=== PATIENT | male | born 1985 | race American Indian/Alaskan Native ===

== ENCOUNTER 2018-01-22 21:01 | Emergency (ER) | payer BC, OTHER ==
[2018-01-22] MEDS ORDERED: ASPIRIN PO ONE (21:22)
[2018-01-22] MEDS ORDERED: ASPIRIN ONE (21:23)
[2018-01-22 21:35] LABS: Basophils # (Auto) 0.1 K/mm3 (0.0-0.1); Basophils % (Auto) 0.9 % (0.0-1.8); Eosinophils # (Auto) 0.1 K/mm3 (0.0-0.4); Eosinophils % (Auto) 1.5 % (0.0-4.3); Hematocrit 47.6 % (35.5-45.6); Hemoglobin 16.2 gm/dl (11.8-15.2); Lymphocytes % (Auto) 33.6 % (13.4-35.0); Mean Corpuscular HGB Conc 34 % (32-34); Mean Corpuscular Hemoglobin 31 pg (28-32); Mean Corpuscular Volume 91 fl (84-94); Monocytes # (Auto) 0.8 K/mm3 (0.0-0.8); Monocytes % (Auto) 8.9 % (0.0-7.3); Platelet Count 247 K/mm3 (140-440); Red Blood Count 5.25 M/mm3 (3.65-5.03); Red Cell Distribution Width 13.8 % (13.2-15.2)
[2018-01-22 22:00] LABS: BUN/Creatinine Ratio 17; Blood Urea Nitrogen 15 mg/dL (9-20); Calcium 9.3 mg/dL (8.4-10.2); Hemolysis Index 25
--- NOTE | 2018-01-23 02:18 | Emergency Department Report ---
ED Chest Pain HPI - General Chief Complaint: Chest Pain Stated Complaint: CHEST PAIN Time Seen by Provider: 01/23/18 02:11 Source: patient Mode of arrival: Ambulatory Limitations: No Limitations - History of Present Illness Initial Comments: Patient is 32 years old male with no significant past medical history. Patient presented to the ER complaining of left-sided chest pain that started all of a sudden this evening. Patient described his chest pain as sharp and does not radiate. Patient denied any shortness of breath cough or congestion. Patient stated that he's been lifting heavy things one week ago. Patient does not have any other symptoms. MD Complaint: chest pain -: Sudden, This evening Onset: during rest Pain Location: left chest Pain Radiation: none Severity: moderate Severity scale (0 -10): 5 Quality: sharp Consistency: intermittent Improves With: remaining still Worsens With: movement - Related Data Previous Rx's Medication Instructions Recorded Last Taken Type Cyclobenzaprine [Flexeril] 10 mg PO TID PRN #15 tablet 05/20/16 Unknown Rx Ibuprofen [Motrin 800 MG tab] 800 mg PO Q8HR PRN #30 tablet 05/20/16 Unknown Rx Acetaminophen/Codeine [Tylenol #3] 1 tab PO Q6H PRN #20 tab 10/24/16 Unknown Rx Amoxicillin [Amoxicillin TAB] 875 mg PO BID #20 tablet 10/24/16 Unknown Rx Allergies Allergy/AdvReac Type Severity Reaction Status Date / Time No Known Allergies Allergy Unverified 05/20/16 19:16 Heart Score - HEART Score History: Slightly suspicious EKG: Non-specific Age: < 45 Risk factors: No known risk factors Troponin: < normal limit HEART Score: 1 - Critical Actions Critical Actions: 0-3 pts:0.9-1.7%risk of adverse cardiac event.Candidate for discharge ED Review of Systems ROS: Stated complaint: CHEST PAIN Other details as noted in HPI Comment: All other systems reviewed and negative Constitutional: denies: chills, fever Respiratory: denies: cough, orthopnea, shortness of breath, SOB with exertion, SOB at rest, wheezing Cardiovascular: chest pain. denies: palpitations, dyspnea on exertion, orthopnea Gastrointestinal: denies: abdominal pain, nausea, vomiting, diarrhea, constipation, hematemesis, melena, hematochezia Musculoskeletal: denies: back pain Skin: denies: rash, lesions, change in color, change in hair/nails Neurological: denies: headache, weakness, numbness, paresthesias, confusion, abnormal gait ED Past Medical Hx - Past Medical History Previous Medical History?: No - Surgical History Past Surgical History?: No - Social History Smoking Status: Light Tobacco Smoker Substance Use Type: Alcohol - Medications Home Medications: Home Medications Medication Instructions Recorded Confirmed Last Taken Type Cyclobenzaprine [Flexeril] 10 mg PO TID PRN #15 tablet 05/20/16 Unknown Rx Ibuprofen [Motrin 800 MG tab] 800 mg PO Q8HR PRN #30 tablet 05/20/16 Unknown Rx Acetaminophen/Codeine [Tylenol #3] 1 tab PO Q6H PRN #20 tab 10/24/16 Unknown Rx Amoxicillin [Amoxicillin TAB] 875 mg PO BID #20 tablet 10/24/16 Unknown Rx ED Physical Exam - General Limitations: No Limitations General appearance: alert, in no apparent distress - Head Head exam: Present: atraumatic, normocephalic, normal inspection - Eye Eye exam: Present: normal appearance - ENT ENT exam: Present: normal exam, normal orophraynx, mucous membranes moist - Neck Neck exam: Present: normal inspection, full ROM. Absent: tenderness, meningismus - Respiratory Respiratory exam: Present: normal lung sounds bilaterally, chest wall tenderness. Absent: respiratory distress, wheezes, rales, rhonchi, stridor, accessory muscle use, decreased breath sounds, prolonged expiratory - Cardiovascular Cardiovascular Exam: Present: regular rate, normal rhythm, normal heart sounds - GI/Abdominal GI/Abdominal exam: Present: soft, normal bowel sounds. Absent: distended, tenderness, guarding, rebound, rigid, organomegaly, mass, bruit, pulsatile mass , hernia - Extremities Exam Extremities exam: Present: normal inspection, full ROM, normal capillary refill - Back Exam Back exam: Present: normal inspection, full ROM. Absent: tenderness, CVA tenderness (R), CVA tenderness (L), muscle spasm, paraspinal tenderness, vertebral tenderness, rash noted - Neurological Exam Neurological exam: Present: alert, oriented X3, CN II-XII intact, normal gait - Skin Skin exam: Present: warm, intact, normal color. Absent: cyanosis ED Course Vital Signs 01/22/18 01/22/18 01/23/18 21:03 21:18 03:08 Temperature 98.3 F 98.3 F Pulse Rate 89 89 76 Respiratory 16 18 20 Rate Blood Pressure 135/81 135/81 O2 Sat by Pulse 99 99 Oximetry 01/23/18 01/23/18 01/23/18 03:15 03:30 03:45 Temperature Pulse Rate 73 75 79 Respiratory 18 19 18 Rate Blood Pressure 110/66 106/70 108/61 O2 Sat by Pulse Oximetry 01/23/18 04:00 Temperature Pulse Rate 76 Respiratory 22 Rate Blood Pressure 106/70 O2 Sat by Pulse Oximetry ED Medical Decision Making - Lab Data Result diagrams: 01/22/18 21:26 01/22/18 21:26 - EKG Data -: EKG Interpreted by Pa EKG shows normal: sinus rhythm Rate: normal - EKG Data Interpretation: no acute changes - Radiology Data Radiology results: report reviewed Referring Physician: ESEQUIEL WASHINGTON Patient Name: CARLOZ MCRAE Date of : 1985 Sex: Male Report Date: 2018-01-23 Report Status: Finalized Findings [address] [address] XRay Report Signed Patient: CARLOZ MCRAE MR#: [id number] : 1985 Acct:[id number] Age/Sex: 32 / M ADM Date: 01/22/18 Loc: ED Attending Dr: Ordering Physician: ESEQUIEL WASHINGTON Date of Service: 01/23/18 Procedure(s): XR chest 1V ap Accession Number(s): [id number] cc: ESEQUIEL WASHINGTON Fluoro Time In Minutes: FINAL REPORT PROCEDURE: XR CHEST 1V AP TECHNIQUE: Chest radiograph anteroposterior view. CPT 59146 HISTORY: chest pain COMPARISON: No prior studies are available for comparison. FINDINGS: Heart: Normal. Mediastinum/Vessels: Normal. Lungs/Pleural space: Normal. Bony thorax: No acute osseous abnormality. Life support devices: None. IMPRESSION: No acute cardiopulmonary abnormality. Transcribed By: [facility] Dictated By: BEAR JOSEPH MD Electronically Authenticated By: BEAR JOSEPH MD Signed Date/Time: 01/23/18235 DD/ 5 TD/TT: 01/23/18235 - Medical Decision Making Patient is sitting comfortably in no acute distress. Patient has been his atypical, 3 troponin is negative, d-dimer is negative and chest x-ray also is unremarkable. I advised patient to follow up with his primary care physician for further management. Critical care attestation.: If time is entered above; I have spent that time in minutes in the direct care of this critically ill patient, excluding procedure time. ED Disposition Clinical Impression: Chest pain, Costochondritis, acute Disposition: DC-01 TO HOME OR SELFCARE Is pt being admited?: No Condition: Stable Instructions: Chest Pain (ED), Costochondritis (ED) Referrals: JUDY TRENT MD [Primary Care Provider] - 3-5 Days
--- NOTE | 2018-01-23 02:41 | XRay Report ---
FINAL REPORT PROCEDURE: XR CHEST 1V AP TECHNIQUE: Chest radiograph anteroposterior view. CPT 19004 HISTORY: chest pain COMPARISON: No prior studies are available for comparison. FINDINGS: Heart: Normal. Mediastinum/Vessels: Normal. Lungs/Pleural space: Normal. Bony thorax: No acute osseous abnormality. Life support devices: None. IMPRESSION: No acute cardiopulmonary abnormality.
[2018-01-23 04:23] VITALS: BP 108/69
== END 2018-01-23 04:39 | disposition home or self-care (01) ==
LOC: ED 21:01
DX: M94.0 Chondrocostal junction syndrome [Tietze] (principal); F17.200 Nicotine dependence, unspecified, uncomplicated
CPT/HCPCS: 36415; 71045; 80048; 84484; 85025; 85379; 93005; 93010

== ENCOUNTER 2018-06-14 22:11 | Emergency (ER) | payer BC ==
[2018-06-15] MEDS ORDERED: NACL 0.9% 1000 ML 1,000 ML IV ONE (01:13)
[2018-06-15 01:43] LABS: Basophils # (Auto) 0.1 K/mm3 (0.0-0.1); Basophils % (Auto) 1.4 % (0.0-1.8); Eosinophils # (Auto) 0.2 K/mm3 (0.0-0.4); Eosinophils % (Auto) 2.4 % (0.0-4.3); Hematocrit 45.7 % (35.5-45.6); Hemoglobin 15.6 gm/dl (11.8-15.2); Lymphocytes # (Auto) 3.2 K/mm3 (1.2-5.4); Mean Corpuscular HGB Conc 34 % (32-34); Mean Corpuscular Hemoglobin 31 pg (28-32); Mean Corpuscular Volume 92 fl (84-94); Monocytes # (Auto) 0.7 K/mm3 (0.0-0.8); Monocytes % (Auto) 7.7 % (0.0-7.3); Platelet Count 246 K/mm3 (140-440); Red Blood Count 4.97 M/mm3 (3.65-5.03); Red Cell Distribution Width 13.3 % (13.2-15.2)
[2018-06-15 02:09] LABS: Alanine Aminotransferase 17 units/L (7-56); Albumin 4.5 g/dL (3.9-5); BUN/Creatinine Ratio 21; Blood Urea Nitrogen 19 mg/dL (9-20); Calcium 9.3 mg/dL (8.4-10.2); Hemolysis Index 33
[2018-06-15 02:52] LABS: Bilirubin,Urine NEG (Negative); Blood,Urine NEG (Negative); Color,Urine Yellow (Yellow); Mucus,Urine FEW /HPF; Protein,Urine <15 mg/dL mg/dL (Negative)
[2018-06-15] MEDS ORDERED: ALUM-MAG HYDROX-SIMETH 200-200-20MG/5ML PO ONE (04:43)
[2018-06-15] MEDS ORDERED: LIDOCAINE VISCOUS 2% PO ONE (04:43)
--- NOTE | 2018-06-15 07:15 | Emergency Department Report ---
ED Abdominal Pain HPI - General Chief Complaint: Abdominal Pain Stated Complaint: ABD PAIN Time Seen by Provider: 06/15/18 07:00 Source: patient Mode of arrival: Ambulatory Limitations: No Limitations - History of Present Illness Initial Comments: Patient is a 33-year-old male that presents emergency room for epigastric pain and periumbilical pain in his abdomen. Patient denies fever or chills. Patient states abdominal pain started 3 days ago and is a burning sensation. Patient states he has had lots of nausea without vomiting or diarrhea. Patient denies chest pain shortness of breath. Patient states the pain is a 5 out of 10. Patient denies past medical history. Patient denies alcohol and drug use. Patient states the pain is a burning and nonradiating. MD Complaint: abdominal pain -: Sudden Location: periumbilical, epigastric Radiation: none Migration to: no migration Severity: moderate Severity scale (0 -10): 5 Quality: burning Consistency: constant Improves With: rest Worsens With: eating Associated Symptoms: nausea. denies: vomiting, diarrhea, fever, chills, constipation, dysuria, hematemesis, hematochezia, melena, hematuria, anorexia, syncope - Related Data Previous Rx's Medication Instructions Recorded Last Taken Type Cyclobenzaprine [Flexeril] 10 mg PO TID PRN #15 tablet 05/20/16 Unknown Rx Ibuprofen [Motrin 800 MG tab] 800 mg PO Q8HR PRN #30 tablet 05/20/16 Unknown Rx Acetaminophen/Codeine [Tylenol #3] 1 tab PO Q6H PRN #20 tab 10/24/16 Unknown Rx Amoxicillin [Amoxicillin TAB] 875 mg PO BID #20 tablet 10/24/16 Unknown Rx Cyclobenzaprine [Flexeril] 5 mg PO TID PRN #20 tablet 01/23/18 Unknown Rx Naproxen [Naprosyn] 500 mg PO BID #14 tablet 01/23/18 Unknown Rx Esomeprazole Magnesium [Nexium] 40 mg PO DAILY #30 capsule. 06/15/18 Unknown Rx Sulfamethoxazole/Trimethoprim 1 each PO Q12H 10 Days #20 tablet 06/15/18 Unknown Rx [Bactrim Ds Tablet] Allergies Allergy/AdvReac Type Severity Reaction Status Date / Time No Known Allergies Allergy Unverified 05/20/16 19:16 ED Review of Systems ROS: Stated complaint: ABD PAIN Other details as noted in HPI Constitutional: denies: chills, fever Eyes: denies: eye pain, eye discharge, vision change ENT: denies: ear pain, throat pain Respiratory: denies: cough, shortness of breath, wheezing Cardiovascular: denies: chest pain, palpitations Endocrine: no symptoms reported Gastrointestinal: abdominal pain, nausea. denies: vomiting, diarrhea Genitourinary: denies: urgency, dysuria Musculoskeletal: denies: back pain, joint swelling, arthralgia Skin: denies: rash, lesions Neurological: denies: headache, weakness, paresthesias Psychiatric: denies: anxiety, depression Hematological/Lymphatic: denies: easy bleeding, easy bruising ED Past Medical Hx - Past Medical History Previous Medical History?: No - Surgical History Past Surgical History?: No - Family History Family history: no significant - Social History Smoking Status: Current Every Day Smoker Substance Use Type: None - Medications Home Medications: Home Medications Medication Instructions Recorded Confirmed Last Taken Type Cyclobenzaprine [Flexeril] 10 mg PO TID PRN #15 tablet 05/20/16 Unknown Rx Ibuprofen [Motrin 800 MG tab] 800 mg PO Q8HR PRN #30 tablet 05/20/16 Unknown Rx Acetaminophen/Codeine [Tylenol #3] 1 tab PO Q6H PRN #20 tab 10/24/16 Unknown Rx Amoxicillin [Amoxicillin TAB] 875 mg PO BID #20 tablet 10/24/16 Unknown Rx Cyclobenzaprine [Flexeril] 5 mg PO TID PRN #20 tablet 01/23/18 Unknown Rx Naproxen [Naprosyn] 500 mg PO BID #14 tablet 01/23/18 Unknown Rx Esomeprazole Magnesium [Nexium] 40 mg PO DAILY #30 capsule.dr 06/15/18 Unknown Rx Sulfamethoxazole/Trimethoprim 1 each PO Q12H 10 Days #20 tablet 06/15/18 Unknown Rx [Bactrim Ds Tablet] ED Physical Exam - General Limitations: No Limitations General appearance: alert, in no apparent distress - Head Head exam: Present: atraumatic, normocephalic - Eye Eye exam: Present: normal appearance - ENT ENT exam: Present: mucous membranes moist - Neck Neck exam: Present: normal inspection - Respiratory Respiratory exam: Present: normal lung sounds bilaterally. Absent: respiratory distress - Cardiovascular Cardiovascular Exam: Present: regular rate, normal rhythm. Absent: systolic murmur, diastolic murmur, rubs, gallop - GI/Abdominal GI/Abdominal exam: Present: soft, tenderness (epigastric ttp and periubilical ttp.), normal bowel sounds - Rectal Rectal exam: Present: deferred - Extremities Exam Extremities exam: Present: normal inspection - Back Exam Back exam: Present: normal inspection - Neurological Exam Neurological exam: Present: alert, oriented X3 - Psychiatric Psychiatric exam: Present: normal affect, normal mood - Skin Skin exam: Present: warm, dry, intact, normal color. Absent: rash ED Course Vital Signs 06/15/18 06/15/18 06/15/18 00:04 05:40 08:11 Temperature 98.2 F 98.6 F Pulse Rate 81 72 Respiratory 12 20 16 Rate Blood Pressure 105/65 Blood Pressure 105/63 [Right] O2 Sat by Pulse 98 98 97 Oximetry 06/15/18 12:11 Temperature 98.0 F Pulse Rate 84 Respiratory 16 Rate Blood Pressure Blood Pressure 112/72 [Right] O2 Sat by Pulse 99 Oximetry - Reevaluation(s) Reevaluation #1: Due to patient's exam and tenderness on evaluation, will order a CT scan of the abdomen with IV and oral contrast. Patient was already given a GI cocktail without relief. 06/15/18 07:15 Reevaluation #2: CT scan is negative. Findings consistent with gastritis. We will treat patient with an oral PPI and discharge home. All results discussed with patient. 06/15/18 11:16 ED Medical Decision Making - Lab Data Result diagrams: 06/15/18 01:24 06/15/18 01:24 - Radiology Data Radiology results: report reviewed EXAM: CT ABDOMEN PELVIS W CON HISTORY: abd pain COMPARISON: None. TECHNIQUE: Multiple contiguous axial images were obtained from the lung bases to the pubic symphysis after administration of IV contrast. Reformatted sagittal and coronal images were available for review. FINDINGS: Lung bases: Normal. Visualized heart and mediastinum: Normal. Liver: Normal. Spleen: Normal. Pancreas: Normal. Gallbladder and Biliary Tree: No calcified gallstones. No biliary ductal dilatation. Adrenal glands: Normal. Kidneys: Symmetric enhancement to both kidneys. 4 millimeter cortical low-density lesion in the cortex of the left kidney, too small to characterize but may represent a cyst. No hydronephrosis. Bladder: Normal. Pelvic organs: Normal. Bowel: No focal wall thickening. No evidence of obstruction. Oral contrast advances to the transverse colon. Normal appendix without surrounding inflammatory change. Peritoneum: No significant mesenteric adenopathy. No free air or free fluid. Vasculature: Abdominal aorta is normal in caliber without evidence of aneurysm. Normal appearance of the portal venous system and the inferior vena cava. Bones and soft tissues: No suspicious osseous lesions.No acute fracture or dislocation. The soft tissues are normal. IMPRESSION: No acute intra-abdominal pathology. No evidence of obstruction. Normal appendix. 4 millimeter low-density lesion in the cortex of the left kidney, too small to characterize, but may represent a cyst. - Medical Decision Making Patient is a 33-year-old male presented with epigastric and periumbilical abdominal pain. CT scan is negative. We'll discharge patient home with Nexium 1 tablet per day. Patient given ER precautions and DC instructions. Patient instructed to use a GERD diet and avoid NSAIDs. CBC and chemistry unremarkable. Urinalysis positive for leukocytes, we'll treat patient for a UTI and give him an antibiotic orally. - Differential Diagnosis gastritis. Gastroenteritis. Abdominal pain. GERD. Critical care attestation.: If time is entered above; I have spent that time in minutes in the direct care of this critically ill patient, excluding procedure time. ED Disposition Clinical Impression: Gastritis Qualifiers: Gastritis type: unspecified gastritis Chronicity: acute Gastritis bleeding: without bleeding Qualified Code(s): K29.00 - Acute gastritis without bleeding GERD (gastroesophageal reflux disease) Qualifiers: Esophagitis presence: without esophagitis Qualified Code(s): K21.9 - Gastro- esophageal reflux disease without esophagitis Abdominal pain Qualifiers: Abdominal location: epigastric Qualified Code(s): R10.13 - Epigastric pain UTI (urinary tract infection) Qualifiers: Urinary tract infection type: acute cystitis Hematuria presence: without hematuria Qualified Code(s): N30.00 - Acute cystitis without hematuria Disposition: DC-01 TO HOME OR SELFCARE Is pt being admited?: No Does the pt Need Aspirin: No Condition: Stable Instructions: Urinary Tract Infection in Men (ED), Diet for Ulcers and Gastritis (ED), Gastroesophageal Reflux Disease (ED) Additional Instructions: Patient is to follow-up with his primary care in 3-5 days. Patient to follow- up with city carrier in 2-3 days. Patient to avoid NSAID and Advil and Motrin and Aleve products. Patient increase water. Patient to eat a GERD diet. Patient to return to ER if condition worsens. Prescriptions: Esomeprazole Magnesium [Nexium] 40 mg PO DAILY #30 capsule. Sulfamethoxazole/Trimethoprim [Bactrim Ds Tablet] 1 each PO Q12H 10 Days #20 tablet Referrals: PRIMARY CARE, [Primary Care Provider] - 3-5 Days Forms: Work/School Release Form(ED) Time of Disposition: 11:20
--- NOTE | 2018-06-15 10:58 | Cat Scan Report ---
FINAL REPORT EXAM: CT ABDOMEN PELVIS W CON HISTORY: abd pain COMPARISON: None. TECHNIQUE: Multiple contiguous axial images were obtained from the lung bases to the pubic symphysis after administration of IV contrast. Reformatted sagittal and coronal images were available for review. FINDINGS: Lung bases: Normal. Visualized heart and mediastinum: Normal. Liver: Normal. Spleen: Normal. Pancreas: Normal. Gallbladder and Biliary Tree: No calcified gallstones. No biliary ductal dilatation. Adrenal glands: Normal. Kidneys: Symmetric enhancement to both kidneys. 4 millimeter cortical low-density lesion in the cortex of the left kidney, too small to characterize but may represent a cyst. No hydronephrosis. Bladder: Normal. Pelvic organs: Normal. Bowel: No focal wall thickening. No evidence of obstruction. Oral contrast advances to the transverse colon. Normal appendix without surrounding inflammatory change. Peritoneum: No significant mesenteric adenopathy. No free air or free fluid. Vasculature: Abdominal aorta is normal in caliber without evidence of aneurysm. Normal appearance of the portal venous system and the inferior vena cava. Bones and soft tissues: No suspicious osseous lesions.No acute fracture or dislocation. The soft tissues are normal. IMPRESSION: No acute intra-abdominal pathology. No evidence of obstruction. Normal appendix. 4 millimeter low-density lesion in the cortex of the left kidney, too small to characterize, but may represent a cyst.
[2018-06-15 12:19] VITALS: BP 112/72
== END 2018-06-15 12:11 | disposition home or self-care (01) ==
LOC: ED 22:11
DX: K29.00 Acute gastritis without bleeding (principal); N39.0 Urinary tract infection, site not specified; F17.200 Nicotine dependence, unspecified, uncomplicated
CPT/HCPCS: 36415; 74177; 80053; 81001; 85025; 99284; Q9967

== ENCOUNTER 2020-09-12 08:22 | Emergency (ER) | payer BC ==
[2020-09-12 08:29] VITALS: BP 126/80
--- NOTE | 2020-09-12 10:26 | Emergency Department Report ---
ED Rash HPI - HPI Chief Complaint: Neck Pain/Injury Stated Complaint: RASH Duration: 1 Location: Neck Suspected Cause: Unknown Rash Symptoms: Yes Blistering, No Itching, No Facial Swelling, No Tongue/Oral Swelling, No Breathing Difficulties, No Choking Sensation, No Wheezing/Dyspnea, No Peeling, No Fever, No Lightheaded, No Malaise, No Myalgias Severity: moderate Other History: The patient was evaluated in the emergency department for symptoms described in the history of present illness. He/she was evaluated in the context of the global COVID-19 pandemic, which necessitated consideration that the patient might be at risk for infection with the virus that causes COVID-19. Institutional protocols and algorithms that pertain to the evaluation of patients at risk for COVID-19 are in a state of rapid change based on information released by regulatory bodies including the CDC and federal and state organizations. These policies and algorithms were followed during the patient's care in the emergency department. Please note that these policies, procedures and recommendations changed on a rapid basis. 35-year-old - Spanish male presents to the emergency room for 1 week history of a rash to his left side of his neck and neck pain. Patient denies any change of detergents cologne or lotions. He denies any insect bite or sitting outside. He denies any fever chills no nausea no vomiting. He states that is just painful. He has tried [id number] hydrocortisone and Benadryl with no success. Patient denies any past medical history does not take any medications on a daily basis and has no known drug allergies. ED Review of Systems ROS: Stated complaint: RASH Other details as noted in HPI Comment: All other systems reviewed and negative ED Past Medical Hx - Past Medical History Previous Medical History?: No - Surgical History Past Surgical History?: No - Social History Smoking Status: Never Smoker - Medications Home Medications: Home Medications Medication Instructions Recorded Confirmed Last Taken Type Cyclobenzaprine [Flexeril] 10 mg PO TID PRN #15 tablet 05/20/16 Unknown Rx Acetaminophen/Codeine [Tylenol #3] 1 tab PO Q6H PRN #20 tab 10/24/16 Unknown Rx Amoxicillin [Amoxicillin TAB] 875 mg PO BID #20 tablet 10/24/16 Unknown Rx Cyclobenzaprine [Flexeril] 5 mg PO TID PRN #20 tablet 01/23/18 Unknown Rx Naproxen [Naprosyn] 500 mg PO BID #14 tablet 01/23/18 Unknown Rx Esomeprazole Magnesium [Nexium] 40 mg PO DAILY #30 capsule. 06/15/18 Unknown Rx Sulfamethoxazole/Trimethoprim 1 each PO Q12H 10 Days #20 tablet 06/15/18 Unknown Rx [Bactrim Ds Tablet] Acyclovir [Zovirax Tab] 400 mg PO Q8H 5 Days #40 tab 09/12/20 Unknown Rx Ibuprofen [Motrin 800 MG tab] 800 mg PO Q8HR PRN #30 tablet 09/12/20 Unknown Rx traMADoL [Ultram 50 MG tab] 50 mg PO Q6HR PRN #12 tablet 09/12/20 Unknown Rx Rash Exam - Exam General: Vital signs noted. No distress. Alert and acting appropriately. HEENT: No Periorbital Edema, No Conjuctival Injection, No Chemosis, No Perioral Edema, No Tongue Edema, No Uvular Edema, No Compromised Airway, No Drooling Lungs: Yes Good Air Exchange (Normal Breath Sounds), No Wheezes, No Ronchi, No Stridor, No Cough, No Labored Respirations, No Retractions, No Use of Accessory Muscles, No Other Abnormal Lung Sounds Heart: Yes Regular, No Murmur Skin: Yes Tenderness, Yes Erythema ED Course Vital Signs 09/12/20 08:26 Temperature 98.3 F Pulse Rate 91 H Respiratory 18 Rate Blood Pressure 126/80 O2 Sat by Pulse 96 Oximetry ED Medical Decision Making - Medical Decision Making 35-year-old -Spanish male presents to the emergency room for 1 week history of a rash to his left side of his neck and neck pain. Patient denies any change of detergents cologne or lotions. He denies any insect bite or sitting outside. He denies any fever chills no nausea no vomiting. He states that is just painful. He has tried [id number] hydrocortisone and Benadryl with no success. Patient denies any past medical history does not take any medications on a daily basis and has no known drug allergies. Rash appears to be vesicular in nature does does follow the dermal and does not cross the midline. Tenderness erythematous and vesicular. No drainage. Patient will be treated for shingles with acyclovir 400 mg 3 times a day for 5 days tramadol and ibuprofen for pain management referral to Dr. Mili Moya. Instructed patient do not operate heavy machinery while taking tramadol. Critical care attestation.: If time is entered above; I have spent that time in minutes in the direct care of this critically ill patient, excluding procedure time. ED Disposition Clinical Impression: Shingles Qualifiers: Herpes zoster complications: without complications Qualified Code(s): B02.9 - Zoster without complications Disposition: TO HOME OR SELFCARE Is pt being admited?: No Does the pt Need Aspirin: No Condition: Stable Instructions: Shingles, [id number] Additional Instructions: Please complete antiviral medication pain medication as needed follow-up with a primary care provider. Prescriptions: Ibuprofen [Motrin 800 MG tab] 800 mg PO Q8HR PRN #30 tablet PRN Reason: Pain traMADoL [Ultram 50 MG tab] 50 mg PO Q6HR PRN #12 tablet PRN Reason: Pain Acyclovir [Zovirax Tab] 400 mg PO Q8H 5 Days #40 tab Referrals: MAX AGUILERA MD [Primary Care Provider] - 3-5 Days CYNTHIA VILLA MD [Staff Physician] - 3-5 Days Forms: Work/School Release Form(ED)
== END 2020-09-12 10:31 | disposition home or self-care (01) ==
LOC: ED 08:22
DX: B02.9 Zoster without complications (principal); Z79.1 Long term (current) use of non-steroidal anti-inflammatories (NSAID); Z79.2 Long term (current) use of antibiotics; Z79.899 Other long term (current) drug therapy
CPT/HCPCS: 99282

== ENCOUNTER 2022-01-09 20:52 | Emergency (ER) | payer BC ==
[2022-01-09 21:31] VITALS: BP 139/67
[2022-01-09] MEDS ORDERED: IBUPROFEN 600 MG TAB PO ONE (22:53)
[2022-01-09] MEDS ORDERED: predniSONE 20 MG TAB PO ONE (22:53)
--- NOTE | 2022-01-09 23:03 | Emergency Department Report ---
- General Chief Complaint: Upper Respiratory Infection Stated Complaint: FLU LIKE SYMPTOMS Source: patient Mode of arrival: Ambulatory Limitations: No Limitations - History of Present Illness Initial Comments: Patient is a 36-year-old -Greek male with no past medical history who presents to the ED with complaint of acute onset persistent nasal and sinus congestion, frontal sinus pressure and headache, sore throat, persistent cough productive of yellowish-green phlegm for the last 1 week, worse in the last 3 days. Patient states that the frontal sinus pressure and headache worsened in the last 24 hours. Patient states that no one else at home is had similar symptoms. Patient denies dizziness, syncope, nausea and vomiting, chest pain, fever and chills, shortness of breath, abdominal pain, change in vision, ear pain, diarrhea or neck pain. MD Complaint: cough, sore throat, rhinorrhea, nasal congestion, sinus pain -: Sudden, week(s) (1) Severity: severe Severity scale (0 -10): 7 Quality: sharp, aching Consistency: constant Improves With: nothing Worsens With: nothing Associated Symptoms: denies other symptoms, headache, rhinorrhea, nasal congestion, sore throat, cough. denies: fever, chills, myalgias, diaphoresis, stiff neck, chest pain, shortness of breath, abdominal pain, nausea, diarrhea, dysuria, rash, confusion, right sweats, epistaxis, hoarseness, ear pain, other Treatments Prior to Arrival: none - Related Data Previous Rx's Medication Instructions Recorded Last Taken Type Cyclobenzaprine [Flexeril] 10 mg PO TID PRN #15 tablet 05/20/16 Unknown Rx Acetaminophen/Codeine [Tylenol #3] 1 tab PO Q6H PRN #20 tab 10/24/16 Unknown Rx Cyclobenzaprine [Flexeril] 5 mg PO TID PRN #20 tablet 01/23/18 Unknown Rx Naproxen [Naprosyn] 500 mg PO BID #14 tablet 01/23/18 Unknown Rx Esomeprazole Magnesium [Nexium] 40 mg PO DAILY #30 capsule. 06/15/18 Unknown Rx Sulfamethoxazole/Trimethoprim 1 each PO Q12H 10 Days #20 tablet 06/15/18 Unknown Rx [Bactrim Ds Tablet] Acyclovir [Zovirax Tab] 400 mg PO Q8H 5 Days #40 tab 09/12/20 Unknown Rx traMADoL [Ultram 50 MG tab] 50 mg PO Q6HR PRN #12 tablet 09/12/20 Unknown Rx Amoxicillin [Amoxicillin TAB] 875 mg PO BID #20 tablet 01/09/22 Unknown Rx Benzonatate [Tessalon Perles] 100 mg PO Q8HR #30 cap 01/09/22 Unknown Rx Cetirizine HCl [Zyrtec 10mg tab] 10 mg PO DAILY #30 tab 01/09/22 Unknown Rx Ibuprofen [Motrin 800 MG tab] 800 mg PO Q8HR PRN #30 tablet 01/09/22 Unknown Rx predniSONE [Deltasone] 40 mg PO QDAY #10 tab 01/09/22 Unknown Rx Allergies Allergy/AdvReac Type Severity Reaction Status Date / Time No Known Allergies Allergy Unverified 05/20/16 19:16 ED Review of Systems ROS: Stated complaint: FLU LIKE SYMPTOMS Other details as noted in HPI Constitutional: denies: chills, fever Eyes: denies: eye pain, eye discharge, vision change ENT: throat pain, congestion, other (Frontal sinus pressure and headache). denies: ear pain Respiratory: cough. denies: shortness of breath, wheezing Cardiovascular: denies: chest pain, palpitations Endocrine: no symptoms reported Gastrointestinal: denies: abdominal pain, nausea, vomiting, diarrhea Genitourinary: denies: urgency, dysuria Musculoskeletal: denies: back pain, joint swelling, arthralgia Skin: denies: rash, lesions Neurological: headache (Frontal sinus pressure and headache). denies: weakness, paresthesias Psychiatric: denies: anxiety, depression Hematological/Lymphatic: denies: easy bleeding, easy bruising ED Past Medical Hx - Surgical History Past Surgical History?: No - Social History Smoking Status: Never Smoker - Medications Home Medications: Home Medications Medication Instructions Recorded Confirmed Last Taken Type Cyclobenzaprine [Flexeril] 10 mg PO TID PRN #15 tablet 05/20/16 Unknown Rx Acetaminophen/Codeine [Tylenol #3] 1 tab PO Q6H PRN #20 tab 10/24/16 Unknown Rx Cyclobenzaprine [Flexeril] 5 mg PO TID PRN #20 tablet 01/23/18 Unknown Rx Naproxen [Naprosyn] 500 mg PO BID #14 tablet 01/23/18 Unknown Rx Esomeprazole Magnesium [Nexium] 40 mg PO DAILY #30 capsule. 06/15/18 Unknown Rx Sulfamethoxazole/Trimethoprim 1 each PO Q12H 10 Days #20 tablet 06/15/18 Unknown Rx [Bactrim Ds Tablet] Acyclovir [Zovirax Tab] 400 mg PO Q8H 5 Days #40 tab 09/12/20 Unknown Rx traMADoL [Ultram 50 MG tab] 50 mg PO Q6HR PRN #12 tablet 09/12/20 Unknown Rx Amoxicillin [Amoxicillin TAB] 875 mg PO BID #20 tablet 01/09/22 Unknown Rx Benzonatate [Tessalon Perles] 100 mg PO Q8HR #30 cap 01/09/22 Unknown Rx Cetirizine HCl [Zyrtec 10mg tab] 10 mg PO DAILY #30 tab 01/09/22 Unknown Rx Ibuprofen [Motrin 800 MG tab] 800 mg PO Q8HR PRN #30 tablet 01/09/22 Unknown Rx predniSONE [Deltasone] 40 mg PO QDAY #10 tab 01/09/22 Unknown Rx ED Physical Exam - General Limitations: No Limitations General appearance: alert, in no apparent distress - Head Head exam: Present: atraumatic, normocephalic, normal inspection - Eye Eye exam: Present: normal appearance, PERRL, EOMI Pupils: Present: normal accommodation - ENT ENT exam: Present: normal orophraynx, mucous membranes moist, TM's normal bilaterally, normal external ear exam, other (Palpable frontal and maxillary sinus tenderness; grossly congested nasal passages) - Neck Neck exam: Present: normal inspection, full ROM, lymphadenopathy (Anterior cervical lymphadenopathy) - Respiratory Respiratory exam: Present: normal lung sounds bilaterally. Absent: respiratory distress, wheezes, rales, rhonchi, chest wall tenderness, accessory muscle use, prolonged expiratory - Cardiovascular Cardiovascular Exam: Present: regular rate, normal rhythm, normal heart sounds. Absent: systolic murmur, diastolic murmur, rubs, gallop - GI/Abdominal GI/Abdominal exam: Present: soft, normal bowel sounds. Absent: tenderness, guarding, rebound, hyperactive bowel sounds, hypoactive bowel sounds, organomegaly - Extremities Exam Extremities exam: Present: normal inspection, full ROM, normal capillary refill - Back Exam Back exam: Present: normal inspection, full ROM. Absent: tenderness, CVA tenderness (R), CVA tenderness (L), muscle spasm, paraspinal tenderness, vertebral tenderness, rash noted - Neurological Exam Neurological exam: Present: alert, oriented X3, CN II-XII intact, normal gait, reflexes normal - Psychiatric Psychiatric exam: Present: normal affect, normal mood - Skin Skin exam: Present: warm, dry, intact, normal color. Absent: rash ED Course Vital Signs 01/09/22 21:27 Temperature 98.1 F Pulse Rate 89 Respiratory 16 Rate Blood Pressure 139/67 [Right] O2 Sat by Pulse 97 Oximetry ED Medical Decision Making - Medical Decision Making This is a 36-year-old -Greek male with no past medical history who presents to the ED with complaint of acute onset persistent nasal and sinus congestion, frontal sinus pressure and headache, sore throat, persistent cough productive of yellowish-green phlegm for the last 1 week, worse in the last 3 days. Patient states that the frontal sinus pressure and headache worsened in the last 24 hours. Patient states that no one else at home is had similar symptoms. In the ED, patient is alert and oriented x3 and is not in any distress. Patient is hemodynamically stable. Patient was treated for pain in the ED and also given oral steroids. Patient the history and physical exam findings, the patient will discharge home on medications and advised to follow- up with his primary care physician in 7 to 10 days for reevaluation or return to the ED immediately if symptoms get worse. - Differential Diagnosis URI; sinusitis; bronchitis; pharyngitis; lymphadenopathy; Critical care attestation.: If time is entered above; I have spent that time in minutes in the direct care of this critically ill patient, excluding procedure time. ED Disposition Clinical Impression: Acute upper respiratory infection Acute pansinusitis, unspecified Qualifiers: Recurrence: non-recurrent Qualified Code(s): J01.40 - Acute pansinusitis, unspecified Acute bronchitis Qualifiers: Bronchitis organism: other organism Qualified Code(s): J20.8 - Acute bronchitis due to other specified organisms Disposition: 01 HOME / SELF CARE / HOMELESS Is pt being admited?: No Does the pt Need Aspirin: No Condition: Stable Instructions: Acute Bronchitis (ED), Sinusitis, Adult, [id number], Upper Respiratory Infection, Adult, [id number], Cough, Adult, [id number], Acute Bronchitis, Adult, [id number] Additional Instructions: Take medication with food, drink plenty of fluids and follow-up with your primary care physician in 7 to 10 days for reevaluation. Return to the ED immediately if your symptoms get worse. Prescriptions: Amoxicillin [Amoxicillin TAB] 875 mg PO BID #20 tablet predniSONE [Deltasone] 40 mg PO QDAY #10 tab Ibuprofen [Motrin 800 MG tab] 800 mg PO Q8HR PRN #30 tablet PRN Reason: Pain Benzonatate [Tessalon Perles] 100 mg PO Q8HR #30 cap Cetirizine HCl [Zyrtec 10mg tab] 10 mg PO DAILY #30 tab Referrals: [facility] [Provider Group] - 7-10 days Forms: Work/School Release Form(ED) Time of Disposition: 23:04 Print Language: SCOTTISH
== END 2022-01-10 00:02 | disposition home or self-care (01) ==
LOC: ED 20:52
DX: J06.9 Acute upper respiratory infection, unspecified (principal); J01.40 Acute pansinusitis, unspecified; J20.9 Acute bronchitis, unspecified
CPT/HCPCS: 99282

== ENCOUNTER 2022-02-22 21:00 | Emergency (ER) | payer BC ==
--- NOTE | 2022-02-22 22:28 | XRay Report ---
RIGHT FOOT 3 VIEW(S) INDICATION / CLINICAL INFORMATION: INJURY with right foot pain after injury 2 weeks ago. COMPARISON: None available. FINDINGS: BONES / JOINT(S): No acute fracture or subluxation. No significant arthritis. SOFT TISSUES: Mild soft tissue swelling on the dorsum of the foot. ADDITIONAL FINDINGS: None. IMPRESSION: 1. No fracture. Mild dorsal soft tissue swelling. Signer Name: Jerald Guerrero MD Signed: 02/22/2022 10:24 PM Workstation Name: [id number]
[2022-02-22] MEDS ORDERED: traMADol 50 MG TAB PO ONE (23:09)
--- NOTE | 2022-02-22 23:48 | Emergency Department Report ---
ED Lower Extremity HPI - General Chief Complaint: Extremity Injury, Lower Stated Complaint: FOOT INJURY Time Seen by Provider: 02/22/22 23:11 Source: patient Mode of arrival: Ambulatory Limitations: No Limitations - History of Present Illness Initial Comments: Is a 36-year-old male who presents for right pinky toe pain states he stubbed his toe on a dresser 2 days ago. Now with pain and swelling the same. Patient is ambulatory however. Patient denies numbness or tingling rates pain at 5/10 exacerbated by palpation. There is no abrasion no laceration no bleeding no obvious deformity. Patient does not have diabetes there is no open wound. MD Complaint: foot injury - Related Data Previous Rx's Medication Instructions Recorded Last Taken Type Cyclobenzaprine [Flexeril] 10 mg PO TID PRN #15 tablet 05/20/16 Unknown Rx Acetaminophen/Codeine [Tylenol #3] 1 tab PO Q6H PRN #20 tab 10/24/16 Unknown Rx Cyclobenzaprine [Flexeril] 5 mg PO TID PRN #20 tablet 01/23/18 Unknown Rx Naproxen [Naprosyn] 500 mg PO BID #14 tablet 01/23/18 Unknown Rx Esomeprazole Magnesium [Nexium] 40 mg PO DAILY #30 capsule. 06/15/18 Unknown Rx Sulfamethoxazole/Trimethoprim 1 each PO Q12H 10 Days #20 tablet 06/15/18 Unknown Rx [Bactrim Ds Tablet] Acyclovir [Zovirax Tab] 400 mg PO Q8H 5 Days #40 tab 09/12/20 Unknown Rx traMADoL [Ultram 50 MG tab] 50 mg PO Q6HR PRN #12 tablet 09/12/20 Unknown Rx Amoxicillin [Amoxicillin TAB] 875 mg PO BID #20 tablet 01/09/22 Unknown Rx Benzonatate [Tessalon Perles] 100 mg PO Q8HR #30 cap 01/09/22 Unknown Rx Cetirizine HCl [Zyrtec 10mg tab] 10 mg PO DAILY #30 tab 01/09/22 Unknown Rx Ibuprofen [Motrin 800 MG tab] 800 mg PO Q8HR PRN #30 tablet 01/09/22 Unknown Rx predniSONE [Deltasone] 40 mg PO QDAY #10 tab 01/09/22 Unknown Rx Naproxen 500 mg PO BID PRN #30 tab 02/22/22 Unknown Rx Allergies Allergy/AdvReac Type Severity Reaction Status Date / Time No Known Allergies Allergy Unverified 05/20/16 19:16 ED Review of Systems ROS: Stated complaint: FOOT INJURY Other details as noted in HPI Constitutional: denies: chills, fever Eyes: denies: eye pain, eye discharge, vision change ENT: denies: ear pain, throat pain Respiratory: denies: cough, shortness of breath, wheezing Cardiovascular: denies: chest pain, palpitations Endocrine: no symptoms reported Gastrointestinal: denies: abdominal pain, nausea, diarrhea Genitourinary: denies: urgency, dysuria Musculoskeletal: other (Right fifth toe pain) Skin: as per HPI Neurological: denies: headache, weakness, paresthesias Psychiatric: denies: anxiety, depression Hematological/Lymphatic: denies: easy bleeding, easy bruising ED Past Medical Hx - Social History Smoking Status: Never Smoker - Medications Home Medications: Home Medications Medication Instructions Recorded Confirmed Last Taken Type Cyclobenzaprine [Flexeril] 10 mg PO TID PRN #15 tablet 05/20/16 Unknown Rx Acetaminophen/Codeine [Tylenol #3] 1 tab PO Q6H PRN #20 tab 10/24/16 Unknown Rx Cyclobenzaprine [Flexeril] 5 mg PO TID PRN #20 tablet 01/23/18 Unknown Rx Naproxen [Naprosyn] 500 mg PO BID #14 tablet 01/23/18 Unknown Rx Esomeprazole Magnesium [Nexium] 40 mg PO DAILY #30 capsule. 06/15/18 Unknown Rx Sulfamethoxazole/Trimethoprim 1 each PO Q12H 10 Days #20 tablet 06/15/18 Unknown Rx [Bactrim Ds Tablet] Acyclovir [Zovirax Tab] 400 mg PO Q8H 5 Days #40 tab 09/12/20 Unknown Rx traMADoL [Ultram 50 MG tab] 50 mg PO Q6HR PRN #12 tablet 09/12/20 Unknown Rx Amoxicillin [Amoxicillin TAB] 875 mg PO BID #20 tablet 01/09/22 Unknown Rx Benzonatate [Tessalon Perles] 100 mg PO Q8HR #30 cap 01/09/22 Unknown Rx Cetirizine HCl [Zyrtec 10mg tab] 10 mg PO DAILY #30 tab 01/09/22 Unknown Rx Ibuprofen [Motrin 800 MG tab] 800 mg PO Q8HR PRN #30 tablet 01/09/22 Unknown Rx predniSONE [Deltasone] 40 mg PO QDAY #10 tab 01/09/22 Unknown Rx Naproxen 500 mg PO BID PRN #30 tab 02/22/22 Unknown Rx ED Physical Exam - General Limitations: No Limitations General appearance: alert, in no apparent distress - Head Head exam: Present: atraumatic, normocephalic - Eye Eye exam: Present: normal appearance, EOMI Pupils: Present: normal accommodation - ENT ENT exam: Present: mucous membranes moist - Neck Neck exam: Present: normal inspection, full ROM. Absent: tenderness - Respiratory Respiratory exam: Present: normal lung sounds bilaterally. Absent: respiratory distress, wheezes - Cardiovascular Cardiovascular Exam: Present: regular rate, normal rhythm, normal heart sounds. Absent: systolic murmur, diastolic murmur, rubs, gallop - GI/Abdominal GI/Abdominal exam: Present: soft, normal bowel sounds. Absent: distended, tenderness - Rectal Rectal exam: Present: deferred - Extremities Exam Extremities exam: Present: normal inspection, full ROM - Expanded Lower Extremity Exam Right Foot/Toe exam: Present: full ROM, tenderness. Absent: swelling (Right fifth digit metatarsal), abrasion, laceration, ecchymosis, deformity, crepidus, dislocation, erythema, amputation, puncture wound, foreign body, calcaneal tenderness, tenderness at base of 5th metatarsal, nail avulsion, subungual hematoma Neuro vascular tendon exam: Absent: pulse deficit, motor deficit, sensory deficit, tendon deficit, foot drop Gait: Positive: observed and limited by pain - Back Exam Back exam: Present: normal inspection, full ROM. Absent: paraspinal tenderness, vertebral tenderness - Neurological Exam Neurological exam: Present: alert, oriented X3, CN II-XII intact - Expanded Neurological Exam Expanded Patient oriented to: Present: person, place, time Speech: Present: fluid speech Motor strength exam: RLE: 5, LLE: 5 DTR: ankle (R): 1+, ankle (L): 1+ Best Eye Response ([place]): (4) open spontaneously Best Motor Response (Suresh): (6) obeys commands Best Verbal Response (Suresh): (5) oriented Suresh Total: 15 - Psychiatric Psychiatric exam: Present: normal affect, normal mood - Skin Skin exam: Present: warm, dry, intact, normal color. Absent: rash ED Course Vital Signs 02/22/22 21:45 Temperature 98.8 F Pulse Rate 94 H Respiratory 18 Rate Blood Pressure 136/74 O2 Sat by Pulse 98 Oximetry ED Lower Extremity MDM - Radiology Data Radiology results: report reviewed, image reviewed RIGHT FOOT 3 VIEW(S) INDICATION / CLINICAL INFORMATION: INJURY with right foot pain after injury 2 weeks ago. COMPARISON: None available. FINDINGS: BONES / JOINT(S): No acute fracture or subluxation. No significant arthritis. SOFT TISSUES: Mild soft tissue swelling on the dorsum of the foot. ADDITIONAL FINDINGS: None. IMPRESSION: 1. No fracture. Mild dorsal soft tissue swelling. Signer Name: Jerald Guerrero MD Signed: 02/22/2022 10:24 PM Workstation Name: [id number] Transcribed By: TERRIE Dictated By: Gelacio Guerrero MD Electronically Authenticated By: Gelacio Guerrero MD Signed Date/Time: 02/22/222223 DD/ 22 TD/TT: - Medical Decision Making Right toe x-ray no fracture no subluxation no dislocation there is mild soft tissue swelling plan treat for right pinky toe sprain. Toe aury taped offer Ortho shoe, NSAIDs as needed pain. Rest elevation. Follow-up with your primary care doctor in 2 to 3 days. Patient verbalized agreement and understanding with discharge plan. Patient DC'd home in stable condition at this time Critical care attestation.: If time is entered above; I have spent that time in minutes in the direct care of this critically ill patient, excluding procedure time. ED Disposition Clinical Impression: Sprain of toe, fifth, right Qualifiers: Encounter type: initial encounter Qualified Code(s): S93.504A - Unspecified sprain of right lesser toe(s), initial encounter Disposition: HOME / SELF CARE / HOMELESS Is pt being admited?: No Does the pt Need Aspirin: No Condition: Stable Instructions: How to Use Cold Therapy, [id number], Foot Sprain, How to Use a Cast Shoe Additional Instructions: Take medication as prescribed. Use Ortho shoe as directed. Return to emergency department should symptoms worsen. Follow-up with your doctor in 2 to 3 days. Prescriptions: Naproxen 500 mg PO BID PRN #30 tab PRN Reason: pain Referrals: PORTILLO BRAR MD [Staff Physician] - 3-5 Days Forms: Work/School Release Form(ED) Time of Disposition: 23:52
[2022-02-23 00:10] VITALS: BP 136/70
== END 2022-02-23 00:27 | disposition home or self-care (01) ==
LOC: ED 21:00
DX: S93.504A Unspecified sprain of right lesser toe(s), initial encounter (principal); X58.XXXA Exposure to other specified factors, initial encounter; Y93.89 Activity, other specified; Y92.89 Other specified places as the place of occurrence of the external cause; Y99.8 Other external cause status
CPT/HCPCS: 99283